=== PATIENT | male | born 1995 | race Caucasian/White ===

== ENCOUNTER 2019-11-20 16:25 | Emergency (ER) | payer OTHER ==
[2019-11-20 16:51] VITALS: BP 131/75
[2019-11-20 17:11] LABS: Influenza A Molecular POSITIVE (Negative)
--- NOTE | 2019-11-20 17:18 | UC ---
FLU HPI - HPI Summary HPI Summary: 24-year-old male who has had flulike symptoms for approximately 4 days and a sore throat. - History of Current Complaint Chief Complaint: UCRespiratory Stated Complaint: SORE THROAT, COUGH Time Seen by Provider: 11/20/19 16:43 Hx Obtained From: Patient Onset/Duration: Gradual Onset Severity Currently: Mild Severity Initially: Mild Pain Intensity: 7 Associated Signs & Symptoms: Positive: Fever, Myalgia, Cough, Sore Throat, Nasal Congestion, Headache Related Hx: Possible Flu/Infectious Exposure - One of his children was diagnosed with flu earlier this week. - Allergy/Home Medications Allergies/Adverse Reactions: Allergies Allergy/AdvReac Type Severity Reaction Status Date / Time No Known Allergies Allergy Verified 11/20/19 16:52 Home Medications: Home Medications Acetaminophen [Acetaminophen Extra Strength] 500 mg PO ONCE PRN 11/20/19 [ History Confirmed 11/20/19] Escitalopram * [Lexapro *] 20 mg PO DAILY 11/20/19 [History Confirmed 11/20/19] hydrOXYzine HCL TAB* [Atarax 25 MG TAB*] 25 mg PO TID PRN 11/20/19 [History Confirmed 11/20/19] PMH/Surg Hx/FS Hx/Imm Hx Previously Healthy: Yes - Surgical History Surgical History: Yes Surgery Procedure, Year, and Place: Left KNEE SURGERY, [facility]. RIGHT FOOT JOINT FUSION SX--06/2014 - Family History Known Family History: Positive: Cardiac Disease, Hypertension - Social History Occupation: Employed Full-time Lives: With Family Alcohol Use: Occasionally Substance Use Type: Excessive Caffeine Smoking Status (MU): Never Smoked Tobacco Have You Smoked in the Last Year: No Review of Systems All Other Systems Reviewed And Are Negative: Yes Constitutional: Positive: Fever, Chills ENT: Positive: Sore Throat, Nasal Discharge Respiratory: Positive: Cough Musculoskeletal: Positive: Myalgia Neurological/Mental Status: Positive: Headache Is Patient Immunocompromised?: No Physical Exam Triage Information Reviewed: Yes Appearance: Well-Appearing, No Pain Distress, Well-Nourished Vital Signs: Initial Vital Signs Temp 98.4 F 11/20/19 16:40 Pulse 91 11/20/19 16:40 Resp 24 11/20/19 16:40 BP 131/75 11/20/19 16:40 Pulse Ox 95 11/20/19 16:40 Vital Signs Reviewed: Yes Eyes: Positive: Conjunctiva Clear ENT: Positive: Pharynx normal, TMs normal, Uvula midline Neck: Positive: Supple, Nontender, No Lymphadenopathy Respiratory: Positive: Lungs clear, Normal breath sounds, No respiratory distress, No accessory muscle use Cardiovascular: Positive: RRR, No Murmur, Pulses Normal, Brisk Capillary Refill Musculoskeletal Exam: Normal Neurological Exam: Normal Psychological Exam: Normal Skin Exam: Normal Flu Course/Dx - Course Course Of Treatment: Flu test: Positive for influenza A Patient is comfortable here and nontoxic. - Differential Dx/Diagnosis Provider Diagnosis: Influenza A Discharge ED - Sign-Out/Discharge Documenting (check all that apply): Patient Departure All imaging exams completed and their final reports reviewed: No Studies - Discharge Plan Condition: Good Disposition: HOME Patient Education Materials: Influenza (DC) Referrals: Donna Alejandro NP [Primary Care Provider] - Additional Instructions: Recent fluids, take Tylenol every 4 hours and may alternate with ibuprofen every 8 hours for fever or pain. Follow-up with your primary care provider if no improvement in 3 or 4 days. - Billing Disposition and Condition Condition: GOOD Disposition: Home
== END 2019-11-20 17:22 | disposition home or self-care (01) ==
LOC: UCCORT 16:25
DX: J10.1 Influenza due to other identified influenza virus with other respiratory manifestations (principal)
CPT/HCPCS: 87651; 99211; G0463